=== PATIENT | female | born 2000 | race Caucasian/White ===

== ENCOUNTER 2020-08-31 10:27 | Inpatient (IN) | payer OTHER ==
[~2020-08-31 10:27] MED LIST: Bupivacaine 0.25% HCL 30 ML VIAL ONE; ePHEDrine 50 MG/ML VIAL ONE
[2020-08-31 11:01] VITALS: BMI 39.8
[2020-08-31] MEDS ORDERED: hydrALAZINE 20 MG/ML VIAL SLOW IVP PRN ×2 (11:15)
[2020-08-31] MEDS ORDERED: Promethazine HCl 25 MG/ML VIAL IM PRN (11:15)
[2020-08-31] MEDS ORDERED: Ondansetron PF 4 MG/2 ML Vial IVP PRN ×2 (11:15→14:17)
[2020-08-31] MEDS ORDERED: hydrALAZINE 20 MG/ML VIAL ONE (11:29)
[2020-08-31 11:53] LABS: Mean Corpuscular HGB CONC 32.8 g/dL (32.0-36.0); Mean Corpuscular Hemoglobin 27.3 pg (27.0-31.0); Mean Corpuscular Volume 83.2 fL (78.0-98.0); Mean Platelet Volume 9.2 fL (7.4-10.4); Platelet Count 231 thou/uL (130-400); RBC Distribution Width 12.6 % (11.5-14.5); Red Blood Cell (RBC) Count 4.74 mill/uL (4.20-5.40); White Blood Cell (WBC) Count 13.2 thou/uL (4.8-10.8)
[2020-08-31 12:05] LABS: Amphetamine Not Detected (NotDetected); Benzodiazepine Screen Not Detected (NotDetected); Cocaine Metabolite Screen Not Detected (NotDetected); Medtox Reader # READER 1; Methamphetamine Not Detected (NotDetected); Opiate Screen Not Detected (NotDetected); Phencyclidine (PCP) Not Detected (NotDetected); THC/Cannabinoid Screen Not Detected (NotDetected); Tricyclic Screen Not Detected (NotDetected)
[2020-08-31 12:06] LABS: Barbiturates Screen Not Detected (NotDetected); Medtox Control Line Valid? VALID (VALID); Methadone Not Detected (NotDetected); Oxycodone Screen Not Detected (NotDetected)
[2020-08-31 12:17] LABS: ALT (SGPT) 10 U/L (8-55); AST (SGOT) 16 U/L (5-34); Albumin 3.2 g/dL (3.5-5.0); Alkaline Phosphatase 149 U/L (40-110); Anion Gap 14 mmol/L (10-20); BUN (Urea Nitrogen) 8 mg/dL (7.0-18.7); Bilirubin, Total 0.2 mg/dL (0.2-1.2); Calc. Creatinine Clearance 202 mL/min (70-130); Calcium 9.1 mg/dL (7.8-10.44); Carbon Dioxide 21 mmol/L (22-29); Chloride 107 mmol/L (98-107); Globulin 3.5 g/dL (2.4-3.5); Glucose 84 mg/dL (70-105); Potassium 4.3 mmol/L (3.5-5.1); Protein, Total 6.7 g/dL (6.0-8.3); Sodium 138 mmol/L (136-145); Uric Acid 5.6 mg/dL (2.6-6.0)
[2020-08-31] MEDS ORDERED: Magnesium Sulfate 20 gm/500 ml 20 GM/500 ML BAG ONE (14:12)
[2020-08-31] MEDS ORDERED: NS / Oxytocin 40 units/1000ml 1,000 ML IV PRN (14:17)
[2020-08-31] MEDS ORDERED: Lidocaine 1% (PF) 30 ML VIAL SC PRN (14:17)
[2020-08-31] MEDS ORDERED: Ibuprofen 800 MG TAB PO PRN (14:17)
[2020-08-31] MEDS ORDERED: Calcium Gluc 4.6 MEQ/10 ML (100 MG/ML) SLOW IVP PRN (14:17)
[2020-08-31] MEDS ORDERED: HYDROcodone/Acetaminophen 5/325 mg Tablet PO PRN ×2 (14:17)
[2020-08-31] MEDS ORDERED: Butorphanol Tartrate 1 MG/ML VIAL SLOW IVP PRN (14:17)
[2020-08-31] MEDS ORDERED: Penicillin G Potassium 5 MILL.UNITS in Sodium Chloride 0.9% 100 ML IVPB SCH (14:30)
[2020-08-31] MEDS ORDERED: Magnesium Sulfate 20 GM/WATER 500 ML BAG IVPB SCH (14:30)
[2020-08-31] MEDS: Magnesium Sulfate 20 gm/500 ml 20 GM/500 ML BAG IVPB SCH ×2 (15:06→22:10)
[2020-08-31] MEDS: hydrALAZINE 20 MG/ML VIAL SLOW IVP PRN ×3 (15:07→21:14)
[2020-08-31] MEDS: Misoprostol 100 MCG TAB VAG SCH ×2 (15:07→17:58)
[2020-08-31 16:01] LABS: HBSAg Index 0.52 S/CO (0-0.99); Hep B Surf Ag Non-Reactive S/CO (NonReactive); Syphilis Antibody Nonreactive (Nonreactive); Syphilis Antibody Index 0.05 S/CO (<1.00 Non-Reactive)
[2020-08-31] MEDS ORDERED: Acetaminophen 500 MG TAB PO PRN (19:25)
[2020-08-31] MEDS ORDERED: DISCONTINUE ALL PREVIOUS NARCOTICS FS SCH (20:45)
[2020-08-31] MEDS ORDERED: Bupivacaine 0.5% 20 ML, fentaNYL Citrate/PF 400 MCG in Sodium Chloride 0.9% 72 ML EPIDURAL SCH (20:45)
[2020-08-31] MEDS ORDERED: PHENYLEPHRINE-NS 100 MCG/ML 10 ML SYRINGE ONE (21:56)
[2020-08-31 23:21] LABS: SARS-CoV-2 MS2 Positive; SARS-CoV-2 N Gene Negative; SARS-CoV-2 S Gene Negative; SARS-CoV-2 by NAA Not Detected (NotDetected); SARS-CoV-2 orf1ab Negative
[2020-09-01] MEDS ORDERED: NS w/ Oxytocin 30 units 500 ML ONE ×2 (00:21→05:24)
[2020-09-01] MEDS: Penicillin G 2.5 MILL.units 2.5 MILL.UNITS in Premix Bag 1 BAG IVPB SCH (00:38)
[2020-09-01] MEDS ORDERED: Misoprostol 200 MCG TAB ONE (02:42)
[2020-09-01] MEDS ORDERED: Calcium Gluconate 4.6 MEQ in Sodium Chloride 0.9% 100 ML IVPB PRN (06:13)
[2020-09-01] MEDS ORDERED: Promethazine HCl 25 MG/ML VIAL IM PRN (06:13)
[2020-09-01] MEDS ORDERED: Benzocaine-Menthol 82.5 ML CAN TOP PRN (06:13)
[2020-09-01] MEDS ORDERED: Lanolin Ointment 7 GM TUBE TOP PRN (06:13)
[2020-09-01] MEDS ORDERED: HYDROcodone/Acetaminophen 5/325 mg Tablet PO PRN ×2 (06:13)
[2020-09-01] MEDS ORDERED: Zolpidem Tartrate 5 MG TAB PO PRN (06:13)
[2020-09-01] MEDS ORDERED: hydrALAZINE 20 MG/ML VIAL SLOW IVP PRN (06:13)
[2020-09-01] MEDS ORDERED: Preparation H Ointment 28 GM TUBE PR PRN (06:13)
[2020-09-01] MEDS ORDERED: Milk Of Magnesia 30 ML UDCUP PO PRN (06:13)
[2020-09-01] MEDS ORDERED: diphenhydrAMINE 25 MG CAP PO PRN (06:13)
[2020-09-01] MEDS ORDERED: Ondansetron PF 4 MG/2 ML Vial IVP PRN (06:13)
[2020-09-01] MEDS ORDERED: Bisacodyl 10 MG SUPP PR PRN (06:13)
[2020-09-01] MEDS ORDERED: NS / Oxytocin 40 units/1000ml 1,000 ML IV SCH (06:15)
[2020-09-01] MEDS ORDERED: Magnesium Sulfate 20 gm/500 ml 20 GM/500 ML BAG IVPB SCH (06:15)
--- NOTE | 2020-09-01 06:56 | DN ---
DATE OF PROCEDURE: 09/01/2020 TIME OF SERVICE: 0615 hours. PREDELIVERY DIAGNOSIS: Severe preeclampsia at 36 weeks induction of labor. POSTDELIVERY DIAGNOSES: Severe preeclampsia at 36 weeks induction of labor, nuchal cord x1 and second-degree midline laceration. PROCEDURES PERFORMED: Spontaneous vaginal delivery with spontaneous second-degree midline laceration repair. ANESTHESIA: Epidural. QUANTITATIVE BLOOD LOSS: Pending. COUNTS: Correct. FINDINGS: 1. Vigorous male , ANNA presentation. Loose nuchal cord x1. Apgars and weight are pending. 2. Normal-appearing placenta intact. 3. Second-degree midline laceration repaired with 2-0 chromic. DISPOSITION: LICU care for severe preeclampsia. DESCRIPTION OF PROCEDURE: She presented to Labor and Delivery within approximately 20 minutes of being called. When I arrived, the patient was to complete +4 and +5 station with the infant noted on the perineum. Over the next three contractions, the patient proceeded to deliver spontaneously with good support of the perineum. The was delivered. Loose nuchal cord reduced and placed on the maternal abdomen. Delayed cord clamping was carried out. Cord blood sample was obtained. The placenta delivered spontaneously within 3 minutes of delivery. Inspection of the perineum revealed the findings as noted in the operative findings. A second-degree midline laceration was repaired in the usual manner using 2-0 chromic suture. Counts were correct, and the fundus was intermittently boggy and then firm consistent with the patient's magnesium. Inspection of the vagina revealed no other significant lacerations for repair. The patient was entered into the LICU care. Admission H and P and labor management were provided by Dr. Sidney Eubanks for the OB hospitalist service. Job ID: [id number]
[2020-09-01] MEDS ORDERED: Adacel (T-DAP) 0.5 ML SYRINGE IM ONE (09:00)
[2020-09-01] MEDS: Labetalol 100 MG TAB PO SCH ×2 (09:07→23:35)
[2020-09-01] MEDS: Magnesium Sulfate 20 gm/500 ml 20 GM/500 ML BAG IVPB SCH ×2 (09:12→19:25)
[2020-09-01] MEDS: Ibuprofen 800 MG TAB PO SCH (17:49)
--- NOTE | 2020-09-01 19:57 | PDOC.BPN ---
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 Here in L&D for PP mag after vaginal delivery. I discussed care with ROCKY Wade. Mag will be over at 0500. One BP elevated [id number] SBP was 158/86 UOP ok. Expect to continue Mag until 0500 and then to floor if BPs are ok
--- NOTE | 2020-09-01 21:09 | PDOC.BPN ---
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 Plan reviewed with her and family member.
[2020-09-01] MEDS: Docusate Calcium (SURFAK) 240 MG CAP PO SCH (23:35)
--- NOTE | 2020-09-02 05:18 | PDOC.PP ---
Post Progress Note Post Day #: 1 Subjective: No new issues PO intake tolerated: yes Flatus: yes Ambulation: yes Vital Signs (12 hours) Pulse BP 09/01/20 23:35 104 H 134/67 Weight Weight 225 lb BPs overnight were reviewed by me and were WNL, there was a BP of 141 systolic at approx 2140 - Physical Examination General: NAD Respiratory: non-labored breathing Abdominal: appropriately TTP Skin: no rash Neurological: no gross focal deficits Psychiatric: A&Ox3, normal affect Result Diagrams: 08/31/20 11:37 08/31/20 11:30 Additional Labs: Post Labs Hep Bs Antigen Non-Reactive S/CO (NonReactive) 08/31/20 14:59 Blood Type A POSITIVE 08/31/20 15:26 (1) Severe pre-eclampsia Code(s): O14.10 - SEVERE PRE-ECLAMPSIA, UNSPECIFIED TRIMESTER Status: Acute (2) Vaginal delivery Code(s): O80 - ENCOUNTER FOR FULL-TERM UNCOMPLICATED DELIVERY Status: Acute - Assessment/Plan I will stop Mag and transfer to floor as BPs are acceptable. No sxs reported. Discussed with Sheri, the patient's RN.
[2020-09-02] MEDS: Ibuprofen 800 MG TAB PO SCH ×4 (05:24→21:18)
[2020-09-02 07:09] LABS: #Basophils 0.1 thou/uL (0.0-0.2); #Eosinphils 0.1 thou/uL (0.0-0.7); #Lymphocytes 3.6 thou/uL (1.20-3.40); #Neutrophils 11.3 thou/uL (1.40-6.50); %Basophils 0.7 % (0.0-1.0); %Eosinophils 0.9 % (0.0-10.0); %Lymphocytes 22.5 % (21.0-51.0); Hemoglobin 10.3 g/dL (12.0-16.0); Mean Corpuscular HGB CONC 32.9 g/dL (32.0-36.0); Mean Corpuscular Hemoglobin 27.6 pg (27.0-31.0); Mean Corpuscular Volume 84.1 fL (78.0-98.0); Platelet Count 202 thou/uL (130-400); RBC Distribution Width 12.9 % (11.5-14.5); Red Blood Cell (RBC) Count 3.74 mill/uL (4.20-5.40); White Blood Cell (WBC) Count 16.1 thou/uL (4.8-10.8)
[2020-09-02] MEDS: Docusate Calcium (SURFAK) 240 MG CAP PO SCH ×3 (07:58→21:17)
[2020-09-02] MEDS: Prenatal Vitamin 1 TAB PO SCH ×2 (07:58→08:40)
[2020-09-02] MEDS: Ferrous Sulfate 325 MG TAB PO SCH ×3 (07:58→16:26)
[2020-09-02] MEDS: Misoprostol 100 MCG TAB VAG SCH ×5 (08:01→08:07)
[2020-09-02] MEDS: Penicillin G 2.5 MILL.units 2.5 MILL.UNITS in Premix Bag 1 BAG IVPB SCH ×3 (08:02→08:06)
[2020-09-02] MEDS: Labetalol 100 MG TAB PO SCH ×2 (08:40→21:17)
[2020-09-03] MEDS: Ibuprofen 800 MG TAB PO SCH (05:53)
[2020-09-03] MEDS: Ferrous Sulfate 325 MG TAB PO SCH (07:23)
[2020-09-03] MEDS: Docusate Calcium (SURFAK) 240 MG CAP PO SCH (08:40)
[2020-09-03] MEDS: Labetalol 100 MG TAB PO SCH (08:40)
[2020-09-03] MEDS: Prenatal Vitamin 1 TAB PO SCH (08:40)
[2020-09-03 12:07] VITALS: BP 138/80; TEMP 98.3
== END 2020-09-03 13:00 | disposition home or self-care (01) | DRG 807 ==
LOC: L&D/OP 10:27 → L&D 17:37 → 3SW 09-02 07:08
PROVIDERS: ADMIT Obstetrics & Gynecology; ATTEND Obstetrics & Gynecology
PROC: 10E0XZZ Delivery of Products of Conception, External Approach (ICD-10-PCS; principal; 2020-09-01)
PROC: 0KQM0ZZ Repair Perineum Muscle, Open Approach (ICD-10-PCS; 2020-09-01)
DX: O14.14 Severe pre-eclampsia complicating childbirth (principal); Z37.0 Single live birth; Z3A.36 36 weeks gestation of pregnancy; O70.1 Second degree perineal laceration during delivery; O69.81X0 Labor and delivery complicated by cord around neck, without compression, not applicable or unspecified; Z20.828 Contact with and (suspected) exposure to other viral communicable diseases; O60.14X0 Preterm labor third trimester with preterm delivery third trimester, not applicable or unspecified
CPT/HCPCS: 36415; 51702; 80053; 80306; 81003; 83735; 84550; 85025; 85027; 86780; 86850; 86900; 86901; 87340; 87635; 99285; J0360; J2001; J2405; J2540; J2590; J3010; J3475; J3490; S0020; U0003